=== PATIENT | male | born 1980 | race Caucasian/White ===

== ENCOUNTER 2016-12-17 17:58 | Emergency (ER) | payer OTHER ==
[2016-12-17] MEDS ORDERED: Albuterol-Ipratrop 3 mg / 0.5 (3 ml) UD INH STA (19:15)
--- NOTE | 2016-12-17 19:17 | C.PDOC ---
History Of Present Illness 36 y.o male with history of asthma presents to ED with complaints of cough and wheezing for 3 days. Patient has been using albuterol at home and is almost out of meds, requesting refill. Denies any fever, chest pain, distress, back pain, sore throat or ear pain. Time Seen by Provider: 12/17/16 19:10 Chief Complaint (Nursing): Shortness Of Breath History Per: Patient History/Exam Limitations: no limitations Onset/Duration Of Symptoms: Days (3) Current Symptoms Are (Timing): Still Present Exacerbating Factor(s): Coughing Current Respiratory Medications: See Home Med List Severity: Mild Recent travel outside of the [place]: No Past Medical History Reviewed: Historical Data, Nursing Documentation, Vital Signs Vital Signs: Last Vital Signs Temp 98.0 F 12/17/16 19:53 Pulse 76 12/17/16 19:53 Resp 16 12/17/16 19:53 BP 134/85 12/17/16 19:53 Pulse Ox 97 12/17/16 20:13 - Medical History PMH: Asthma Family History: States: Unknown Family Hx - Social History Hx Tobacco Use: No Hx Alcohol Use: Yes Hx Substance Use: No - Immunization History Hx Tetanus Toxoid Vaccination: No Hx Influenza Vaccination: No Hx Pneumococcal Vaccination: No Review Of Systems Except As Marked, All Systems Reviewed And Found Negative. Constitutional: Negative for: Fever ENT: Negative for: Ear Pain, Throat Pain Cardiovascular: Negative for: Chest Pain Respiratory: Positive for: Cough, Wheezing Musculoskeletal: Negative for: Back Pain Physical Exam - Physical Exam Appears: Non-toxic, No Acute Distress Skin: Warm, Dry, No Diaphoretic, No Pale Head: Atraumatic, Normacephalic Eye(s): bilateral: Normal Inspection, EOMI Ear(s): Bilateral: Normal Nose: Normal Oral Mucosa: Moist Throat: Normal Neck: Normal ROM, Supple Chest: Symmetrical Cardiovascular: Rhythm Regular Respiratory: No Accessory Muscle Use, No Rales, No Rhonchi, Wheezing (expiratory ) Back: Normal Inspection Extremity: Normal ROM Neurological/Psych: Oriented x3, Normal Speech Gait: Steady ED Course And Treatment O2 Sat by Pulse Oximetry: 97 (RA) Pulse Ox Interpretation: Normal Medical Decision Making Medical Decision Making: Impression: 36 y.o male with asthma complains of wheeze. Exam show expiratory wheeze Plan: * Duoneb * Prednisone Progress: Upon reevaluation, patient has no fever and reports feeling better. Lungs are now clear bilaterally with good air entry. Disposition Counseled Patient/Family Regarding: Diagnosis, Need For Followup, Rx Given - Disposition Referrals: [facility] [Outside] [facility] [Outside] [facility] Disposition: HOME/ ROUTINE Disposition Time: 19:38 Condition: IMPROVED Additional Instructions: Francisca recetas fueron enviadas a alberts [employer] Por favor tome medicamentos diariamente Julio un seguimiento con alberts mdico o clnica en pocos denny Regrese al servicio de urgencias en cualquier momento si los sntomas persisten o empeoran. 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 - Scribe Statement The provider has reviewed the documentation as recorded by the Scribe Brisa Celeste All medical record entries made by the Scribe were at my direction and personally dictated by me. I have reviewed the chart and agree that the record accurately reflects my personal performance of the history, physical exam, medical decision making, and the department course for this patient. I have also personally directed, reviewed, and agree with the discharge instructions and disposition.
[2016-12-17] MEDS ORDERED: Albuterol-Ipratrop 3 mg / 0.5 (3 ml) UD ONE (19:29)
[2016-12-17 19:54] VITALS: BP 134/85; PULSE 76; RESP 16; TEMP 98; O2SAT 97
== END 2016-12-17 19:54 | disposition home or self-care (01) ==
LOC: C.ER 17:58
DX: J45.909 Unspecified asthma, uncomplicated (principal)

== ENCOUNTER 2017-01-31 19:08 | Emergency (ER) | payer OTHER ==
[2017-01-31 19:26] VITALS: RESP 16; TEMP 97.9; O2SAT 98
[2017-01-31] MEDS ORDERED: Albuterol 0.083% Inhal Sol (2.5 mg/3 mL) UD IH STA (19:53)
--- NOTE | 2017-01-31 20:05 | C.PDOC ---
History Of Present Illness 36 year old male presents to the ED with complaints of chest tightness,dry cough , and intermittent wheeze for two days. Patient notes a history of asthma and cough worse at night. He denies any fever, chills, chest pain, dyspnea, or palpitations. Time Seen by Provider: 01/31/17 19:31 Chief Complaint (Nursing): Med Refill History Per: Patient History/Exam Limitations: no limitations Onset/Duration Of Symptoms: Days (2 days ) Current Symptoms Are (Timing): Still Present Recent travel outside of the [place]: No Past Medical History Reviewed: Historical Data, Nursing Documentation, Vital Signs Vital Signs: Last Vital Signs Temp 97.9 F 01/31/17 19:22 Pulse 80 01/31/17 19:22 Resp 16 01/31/17 19:22 BP 123/82 01/31/17 19:22 Pulse Ox 98 01/31/17 20:07 - Medical History PMH: Asthma Family History: States: Unknown Family Hx - Social History Hx Tobacco Use: No Hx Alcohol Use: No Hx Substance Use: No - Immunization History Hx Tetanus Toxoid Vaccination: No Hx Influenza Vaccination: No Hx Pneumococcal Vaccination: No Review Of Systems Constitutional: Negative for: Fever, Chills, Sweats Cardiovascular: Positive for: Other (chest tightness ). Negative for: Chest Pain, Palpitations Respiratory: Positive for: Cough (dry cough ), Wheezing (intermittent wheezing ) . Negative for: Shortness of Breath Gastrointestinal: Negative for: Nausea, Vomiting, Abdominal Pain, Diarrhea Physical Exam - Physical Exam Appears: Well, Non-toxic, No Acute Distress Skin: Warm, Dry, No Rash Throat: Normal, No Erythema, No Exudate, No Drooling Neck: Supple Chest: Symmetrical, No Deformity Cardiovascular: Rhythm Regular Respiratory: No Decreased Breath Sounds, No Accessory Muscle Use, No Rales, No Rhonchi, No Stridor, Wheezing (scattered wheezing at the right base ) Gastrointestinal/Abdominal: Soft, No Tenderness, No Distention, No Guarding, No Rebound Extremity: No Tenderness, No Swelling Neurological/Psych: Oriented x3, Normal Motor, Normal Sensation ED Course And Treatment O2 Sat by Pulse Oximetry: 98 (room air ) Pulse Ox Interpretation: Normal - Radiology CXR: Interpreted by Me, Viewed By Me CXR Interpretation: Yes: No Acute Disease Progress Note: On re-evaluation, pt is afebrile, hemodynamicaly stable. NOn- toxic. Tolerate Po well in Ed. NOt in any apparent distress. PulsEOx 98% RA. neck: (-) meningeal sign. ENT: No acute findings. Lungs: CTA B/L, BS equal B/ L. CXR review and appeas normal. Pt advised on course of ds. Advised to F/U with PMD in 1-2 days for re-eavl. Disposition Counseled Patient/Family Regarding: Studies Performed, Diagnosis, Need For Followup, Rx Given - Disposition Referrals: [facility] [Outside] Disposition: HOME/ ROUTINE Disposition Time: 21:01 Condition: STABLE Additional Instructions: Take medication as prescribed Encourage fluids Follow up with PMD in 2-3 days for re-evaluation. Return to ED if any worsening or new changes. Prescriptions: Albuterol HFA [Ventolin HFA 90 mcg/actuation (8 g)] 1 puff IH Q6 #1 inhaler Loratadine [Claritin] 10 mg PO DAILY #14 tab Prednisone [Deltasone] 20 mg PO DAILY #3 tablet Instructions: Asthma (ED) - Clinical Impression Clinical Impression: Asthma - Scribe Statement The provider has reviewed the documentation as recorded by the Scribe Ameena Davila All medical record entries made by the Scribe were at my direction and personally dictated by me. I have reviewed the chart and agree that the record accurately reflects my personal performance of the history, physical exam, medical decision making, and the department course for this patient. I have also personally directed, reviewed, and agree with the discharge instructions and disposition.
[2017-01-31] MEDS ORDERED: Albuterol 0.083% Inhal Sol (2.5 mg/3 mL) UD ONE (20:12)
[2017-01-31 21:10] VITALS: BP 133/74; PULSE 84
--- NOTE | 2017-02-01 09:58 | RAD ---
HISTORY: Cough COMPARISON: 01/14/2016 TECHNIQUE: Chest PA and lateral FINDINGS: LUNGS: No active pulmonary disease. PLEURA: No significant pleural effusion identified. No pneumothorax apparent. CARDIOVASCULAR: Normal. OSSEOUS STRUCTURES: No significant abnormalities. VISUALIZED UPPER ABDOMEN: Normal. OTHER FINDINGS: None. IMPRESSION: No active disease.
== END 2017-01-31 21:10 | disposition home or self-care (01) ==
LOC: C.ER 19:08
DX: J45.909 Unspecified asthma, uncomplicated (principal)

== ENCOUNTER 2017-12-26 17:59 | Emergency (ER) | payer SELFPAY ==
[2017-11-02 12:26] VITALS: BMI 42.6
[2017-12-26 18:05] VITALS: O2SAT 95
[2017-12-26] MEDS ORDERED: Albuterol-Ipratrop 3 mg / 0.5 (3 ml) UD ONE (18:09)
[2017-12-26 18:27] VITALS: RESP 18
[2017-12-26] MEDS ORDERED: Albuterol-Ipratrop 3 mg / 0.5 (3 ml) UD IH STA (18:33)
[2017-12-26] MEDS ORDERED: Albuterol 0.083% Inhal Sol (2.5 mg/3 mL) UD IH STA (18:33)
--- NOTE | 2017-12-26 19:03 | C.PDOC ---
History Of Present Illness 37 y/o male with a history of chronic asthma presents to the ED for SOB. Patient states symptoms began 3 days ago when his asthma became worse having trouble sleeping associated with a wheezing cough. He states he can't take deep breaths. Patient uses an albuterol inhaler and an at home nebulizer machine. Denies any fever or chills. PMD: Moustapha Calvo DO Time Seen by Provider: 12/26/17 18:27 Chief Complaint (Nursing): Respiratory Distress History Per: Patient History/Exam Limitations: no limitations Onset/Duration Of Symptoms: Days (x3) Exacerbating Factor(s): Coughing Current Respiratory Medications: Albuterol, Other (nebulizer machine) Associated Symptoms: denies: Fever, Chills Recent travel outside of the [place]: No Past Medical History Reviewed: Historical Data, Nursing Documentation, Vital Signs Vital Signs: Last Vital Signs Temp 97.9 F 12/26/17 18:02 Pulse 79 12/26/17 18:02 Resp 18 12/26/17 18:17 BP 142/87 12/26/17 18:02 Pulse Ox 95 12/26/17 19:11 - Medical History PMH: Asthma Surgical History: No Surg Hx Family History: States: Unknown Family Hx - Social History Hx Tobacco Use: No Hx Alcohol Use: No Hx Substance Use: No - Immunization History Hx Tetanus Toxoid Vaccination: No Hx Influenza Vaccination: No Hx Pneumococcal Vaccination: No Review Of Systems Constitutional: Negative for: Fever, Chills Respiratory: Positive for: Cough, Shortness of Breath, Wheezing Physical Exam - Physical Exam Appears: Well, No Acute Distress, Other (upon arrival speaking full sentences) Skin: Normal Color, Warm, Dry Head: Atraumatic, Normacephalic Eye(s): bilateral: Normal Inspection, PERRL, EOMI Nose: Normal Throat: Normal Neck: Normal, Supple Lymphatic: No Adenopathy Cardiovascular: Rhythm Regular Respiratory: Decreased Breath Sounds (diminished), Wheezing (with deep breaths) , Other (cough) Gastrointestinal/Abdominal: Normal Exam, Soft, No Tenderness Back: Normal Inspection, No CVA Tenderness, No Vertebral Tenderness Extremity: Normal ROM, No Tenderness, No Pedal Edema Neurological/Psych: Oriented x3 ED Course And Treatment O2 Sat by Pulse Oximetry: 95 (RA) Pulse Ox Interpretation: Normal - Radiology CXR: Interpreted by Dc CXR Interpretation: Yes: No Acute Disease Reevaluation Time: 20:43 Reassessment Condition: Improved (Better aeration and no wheezing noted after nebulizer treatments.) Medical Decision Making Medical Decision Making: Time: 18:02 Impression: Exacerbation of asthma Initial Plan: * Albuterol * Nebulizer Scribe Attestation: Documented by Harini Leal acting as a scribe Rebecca Marin MD. MD Gillespie Attestation: All medical record entries made by the Scribe were at my direction and personally dictated by me. I have reviewed the chart and agree that the record accurately reflects my personal performance of the history, physical exam, medical decision making, and the department course for this patient. I have also personally directed, reviewed, and agree with the discharge instructions and disposition Disposition Counseled Patient/Family Regarding: Studies Performed, Diagnosis, Need For Followup - Disposition Referrals: Kamilah Gerard DO, DO [Medical Doctor] - Disposition: HOME/ ROUTINE Disposition Time: 20:44 Condition: IMPROVED Prescriptions: Methylprednisolone [Medrol Dose Pack (21 tabs)] See Taper PO DAILY #1 packet Instructions: Asthma, Adult (DC) Forms: [employer] (Montserratian) - Clinical Impression Clinical Impression: Exacerbation of asthma
[2017-12-26 20:51] VITALS: BP 119/84; PULSE 69; TEMP 97.5
--- NOTE | 2017-12-27 08:31 | RAD ---
Chest x-ray two views History: Shortness of breath. Comparison: 01/31/2017 Findings: Linear atelectasis at the left lung base. No focal infiltrate or effusion. Heart size within normal limits. Impression: Linear atelectasis at the left lung base.
== END 2017-12-26 21:02 | disposition home or self-care (01) ==
LOC: C.ER 17:59
DX: J45.901 Unspecified asthma with (acute) exacerbation (principal)

== ENCOUNTER 2018-12-18 17:24 | Emergency (ER) | payer OTHER ==
[2017-11-02 12:26] VITALS: BMI 42.6
[2018-12-18 17:41] VITALS: TEMP 98.2
--- NOTE | 2018-12-18 18:30 | C.PDOC ---
History Of Present Illness 38yo M with history of asthma here today for shortness of breath, worsening over 4 days. Today he felt tightness in his chest and became unable to take deep breaths. He takes albuterol via nebulizer once a day, and has increased it to twice a day as this shortness of breath has worsened. He wears a mask at work and does not note co-workers getting sick. Denies chest pain, headache, palpitations, abdominal pain, dizziness, lightheadedness. Time Seen by Provider: 12/18/18 18:19 Chief Complaint (Nursing): Shortness Of Breath History Per: Patient Onset/Duration Of Symptoms: Days Past Medical History Reviewed: Historical Data, Nursing Documentation, Vital Signs Vital Signs: Last Vital Signs Temp 98.2 F 12/18/18 17:38 Pulse 77 12/18/18 17:38 Resp 20 12/18/18 17:38 BP 137/86 12/18/18 17:38 Pulse Ox 97 12/18/18 17:38 Primary Care Provider: iLnh Campbell - Medical History PMH: Asthma Family History: States: Unknown Family Hx - Social History Hx Tobacco Use: No Hx Alcohol Use: No Hx Substance Use: No - Immunization History Hx Tetanus Toxoid Vaccination: No Hx Influenza Vaccination: No Hx Pneumococcal Vaccination: No Review Of Systems Constitutional: Negative for: Fever, Chills, Weakness Eyes: Positive for: Other (tearing with seaonal pollen) ENT: Positive for: Nose Discharge Cardiovascular: Negative for: Chest Pain, Palpitations, Orthopnea, Edema, Light Headedness Respiratory: Positive for: Cough, Shortness of Breath. Negative for: Sputum (unable to produce), Wheezing Gastrointestinal: Negative for: Nausea, Vomiting, Abdominal Pain, Diarrhea, Constipation Genitourinary: Negative for: Dysuria, Frequency, Incontinence Musculoskeletal: Negative for: Shoulder Pain, Back Pain Neurological: Negative for: Weakness, Incoordination, Confusion, Altered Mental Status Physical Exam - Physical Exam Appears: Well, No Acute Distress Skin: Normal Color, Warm, Dry Head: Atraumatic, Normacephalic Nose: No Discharge Oral Mucosa: Dry Chest: Symmetrical, No Deformity Cardiovascular: Rhythm Regular, No Edema, No Murmur Respiratory: No Accessory Muscle Use, No Rales, No Rhonchi, No Stridor, Wheezing (bilateral upper lobes. throughout R lung on expiration), Other (no nasal flaring. good inspiratory effort) Gastrointestinal/Abdominal: Normal Exam, Bowel Sounds, Soft, No Tenderness Extremity: No Normal ROM, No Pedal Edema Pulses: Left Radial: Normal, Right Radial: Normal Neurological/Psych: Oriented x3, Normal Speech, Normal Cognition ED Course And Treatment O2 Sat by Pulse Oximetry: 97 - Radiology CXR: Interpreted by Me, Viewed By Me, Read By Radiologist CXR Interpretation: Yes: No Acute Disease Medical Decision Making Medical Decision Making: - CXR: no focal consolidation - Duoneb x1 - PO Prednisone 40mg Patient states he is able to go to see his PMD in the morning. Disposition - Disposition Referrals: [facility] at [facility] [Outside] Disposition: HOME/ ROUTINE Disposition Time: 18:52 Condition: IMPROVED Additional Instructions: You can buy OTC Flonase for your allergies. Continue to take Rosy for the allergies. You are can continue to use your home nebulizer treatments, but need to go to see your PMD to adjust your home medications, possibly starting a maintenance medication. You can walk into the Clinic instead of an appointment, especially if you run out of Albuterol. Instructions: Asthma, Adult (DC) Forms: [employer] (Kiswahili) Print Language: SAMI - Clinical Impression Clinical Impression: Asthma
[2018-12-18 18:34] VITALS: RESP 18
--- NOTE | 2018-12-18 18:43 | RAD ---
HISTORY: chest tightness COMPARISON: Chest x-ray performed 12/26/17 TECHNIQUE: Chest, one view. FINDINGS: LUNGS: No focal consolidation. Please note that chest x-ray has limited sensitivity for the detection of pulmonary masses. PLEURA: No significant pleural effusion identified. No definite pneumothorax . CARDIOVASCULAR: Heart size appears within normal limits. No significant atherosclerotic calcification present. OSSEOUS STRUCTURES: Degenerative changes. VISUALIZED UPPER ABDOMEN: Unremarkable. OTHER FINDINGS: None. IMPRESSION: No focal consolidation.
[2018-12-18] MEDS ORDERED: MethylPREDNISolone 40 mg Vial IVP STA (18:58)
[2018-12-18] MEDS ORDERED: Albuterol-Ipratrop 3 mg / 0.5 (3 ml) UD INH STA (19:00)
[2018-12-18] MEDS ORDERED: Albuterol-Ipratrop 3 mg / 0.5 (3 ml) UD ONE (19:09)
[2018-12-18 20:31] VITALS: BP 135/81; PULSE 82; O2SAT 100
== END 2018-12-18 20:30 | disposition home or self-care (01) ==
LOC: C.ER 17:24
DX: J45.909 Unspecified asthma, uncomplicated (principal)

== ENCOUNTER 2018-12-24 19:38 | Emergency (ER) | payer OTHER ==
[2017-11-02 12:26] VITALS: BMI 42.6
[2018-12-24] MEDS: Albuterol-Ipratrop 3 mg / 0.5 (3 ml) UD IH SCH ×3 (20:10→21:06)
--- NOTE | 2018-12-24 20:38 | C.PDOC ---
History Of Present Illness Patient presents to the ED c/o SOB that has been worsening over the last couple of days. Patient states he used albuterol treatment with no relief. Patient reports he ran out of his duonebs at home. Patient able to speak in complete sentences. Patient denies fever, chills, headache, CP, palpitations, recent travel, sick contacts. Time Seen by Provider: 12/24/18 20:38 Chief Complaint (Nursing): Shortness Of Breath History Per: Patient History/Exam Limitations: no limitations Onset/Duration Of Symptoms: Days Current Symptoms Are (Timing): Worse Initiating Event: Upper Respiratory Illness Quality: Tightness Exacerbating Factor(s): Coughing Current Respiratory Medications: Albuterol Recent travel outside of the [place]: No Additional History Per: Patient Past Medical History Reviewed: Historical Data, Nursing Documentation, Vital Signs Vital Signs: Last Vital Signs Temp 98.1 F 12/24/18 19:48 Pulse 85 12/24/18 19:48 Resp 12 12/24/18 19:54 BP 123/83 12/24/18 19:48 Pulse Ox 99 12/24/18 19:54 Primary Care Provider: Bg Rangel Surg - Medical History PMH: Asthma Surgical History: No Surg Hx Family History: States: Unknown Family Hx - Social History Hx Tobacco Use: No Hx Alcohol Use: No Hx Substance Use: No - Immunization History Hx Tetanus Toxoid Vaccination: No Hx Influenza Vaccination: No Hx Pneumococcal Vaccination: No Review Of Systems Constitutional: Negative for: Fever, Chills ENT: Negative for: Nose Discharge, Nose Congestion Respiratory: Positive for: Cough, Shortness of Breath, Wheezing Gastrointestinal: Negative for: Nausea, Vomiting, Abdominal Pain Skin: Negative for: Rash Neurological: Negative for: Weakness, Numbness, Headache, Dizziness Physical Exam - Physical Exam Appears: Non-toxic, No Acute Distress Skin: Warm, Dry Head: Normacephalic Eye(s): bilateral: Normal Inspection Oral Mucosa: Moist Neck: Supple Chest: Symmetrical Cardiovascular: Rhythm Regular Respiratory: No Rales, No Rhonchi, Wheezing (scattered) Gastrointestinal/Abdominal: Soft, No Tenderness, No Distention Extremity: Bilateral: Atraumatic, Normal Color And Temperature, Normal ROM Neurological/Psych: Oriented x3, Normal Speech, Normal Cognition Gait: Steady ED Course And Treatment ECG: Interpreted By Me, Viewed By Me ECG Rhythm: Sinus Rhythm (78), Nonspecific Changes O2 Sat by Pulse Oximetry: 99 (ON RA) Pulse Ox Interpretation: Normal Progress Note: Plan: - Duoneb. - Prednisone 60 mg PO Reevaluation Time: 22:03 Reassessment Condition: Improved Critical Care Time - Critical Care Note Total Time (in mins): 30 Documented critical care: time excludes all time spent performing seperately billable procedures. Medical Decision Making Medical Decision Making: Upon provider reevaluation patient is feeling better, is medically stable, and requires no further treatment in the ED at this time. Patient will be discharged home with Rx for duoneb, prednisone . Counseling was provided and all questions were answered regarding diagnosis and need for follow up with the referred clinic. There is agreement to discharge plan. Return if symptoms persist or worsen. Disposition Counseled Patient/Family Regarding: Studies Performed, Diagnosis, Need For Followup, Rx Given - Disposition Referrals: [facility] [Outside] [facility] [Outside] Disposition: HOME/ ROUTINE Disposition Time: 20:38 Condition: FAIR Additional Instructions: Please return if symptoms recur Prescriptions: Albuterol HFA [Ventolin HFA 90 mcg/actuation (8 g)] 2 puff IH T8DSTCT #1 puff Albuterol/Ipratropium [Duoneb 3 MG/3 Ml-0.5 MG/3 Ml 3 Ml] 1 ea IH QID PRN #50 neb PRN Reason: Wheezing Prednisone [Deltasone] 20 mg PO DAILY #5 tablet Instructions: Asthma, Adult (DC) Forms: [employer] (Emirati) - Clinical Impression Clinical Impression: Exacerbation of asthma - Scribe Statement The provider has reviewed the documentation as recorded by the Scribjoseph Davies All medical record entries made by the Scribe were at my direction and personally dictated by me. I have reviewed the chart and agree that the record accurately reflects my personal performance of the history, physical exam, medical decision making, and the department course for this patient. I have also personally directed, reviewed, and agree with the discharge instructions and disposition.
[2018-12-24 22:23] VITALS: BP 143/83; PULSE 78; RESP 20; TEMP 97.6; O2SAT 96
== END 2018-12-24 22:23 | disposition home or self-care (01) ==
LOC: C.ER 19:38
DX: J45.901 Unspecified asthma with (acute) exacerbation (principal)